=== PATIENT | female | born 1960 | race Caucasian/White ===

== ENCOUNTER → 2018-05-12 13:43 | Outpatient (CLI) | payer MEDICARE, SELFPAY ==
[2018-05-12 14:35] LABS: Add Manual Diff / Slide Review NO; Basophils Percent Auto 0.3 % (0-2); Eosinophils Percent Auto 3.7 % (2-4); Lymphocytes Percent Auto 37.9 % (25-40); Mean Corpuscular HGB Conc 33.4 % (30-36); Mean Corpuscular Hemoglobin 28.5 PG (26-34); Mean Corpuscular Volume 85.4 fL (80-100); Monocytes Percent Auto 5.6 % (3-14); Neutrophils Absolute Auto 6100 /uL (3000-5900); Neutrophils Percent Auto 52.5 % (50-75); Platelet Count 388 X10^3/uL (150-400); Red Blood Cell Count 4.57 X10^6/uL (4.0-5.2); White Blood Cell Count 11.6 X10^3/uL (4.5-11.0)
[2018-05-12 14:56] LABS: Alanine Aminotransferase 77 IU/L (9-52); Albumin Globulin Ratio 0.9 (1.0-2.8); Alkaline Phosphatase 113 U/L (38-126); Aspartate Aminotransferase 68 IU/L (14-36); BUN Creatinine Ratio 24.3 (6-22); Bilirubin Total 0.5 mg/dL (0.2-1.3); Blood Urea Nitrogen 17 mg/dL (7-17); Calcium 9.4 mg/dL (8.4-10.2); Carbon Dioxide 34 mmol/L (22-32); Chloride 101 mmol/L (98-107); Estimated Glomerular Filt Rate > 60.0 mL/min (>60); Globulin 4.7 g/dL (1.7-4.1); Glucose 109 mg/dL (70-100); HEMOLYSIS < 15 (0-50); Potassium 3.9 mmol/L (3.4-5.1); Sodium 141 mmol/L (137-145); Total Protein 8.7 g/dL (6.3-8.2)
[2018-05-12 15:33] LABS: Hepatitis B Surface Antigen NEGATIVE s/c (NEGATIVE)
[2018-05-12 15:56] LABS: Hep C Virus Ab w/Reflex Quant REACTIVE s/c (NEGATIVE)
[2018-05-14 14:06] LABS: Hepatitis A Antibody IgM Nonreactive (Nonreactive); Hepatitis B Core Antibody Nonreactive (Nonreactive)
[2018-05-14 15:47] LABS: Hepatitis B Surf Ab Qualitativ Nonreactive (Nonreactive)
[2018-05-20 08:39] LABS: Rapid Plasma Reagin NON-REACTIVE
== END ==
PROVIDERS: Visit Provider Physician Assistant Medical
DX: Z11.3 Encounter for screening for infections with a predominantly sexual mode of transmission (principal); Z11.51 Encounter for screening for human papillomavirus (HPV); Z13.228 Encounter for screening for other metabolic disorders
CPT/HCPCS: 36415; 80053; 85025; 86592; 86704; 86706; 86709; 86803; 87340; 87522; 87902

== ENCOUNTER 2021-03-09 16:06 | Inpatient (IN) | payer MEDICARE, SELFPAY ==
[2021-03-09] VITALS (15 sets, daily range): BP systolic 90–134; BP diastolic 50–81; PULSE 66–100; RESP 18–24; TEMP 37.3; O2SAT 91–97; BMI 20.9
[2021-03-09 17:07] LABS: Add Manual Diff / Slide Review NO; Basophils Absolute Auto 100 /uL (0-100); Basophils Percent Auto 0.8 % (0-2); Eosinophils Absolute Auto 300 /uL (0-450); Eosinophils Percent Auto 2.8 % (2-4); Hematocrit 34.9 % (36-46); Hemoglobin 11.7 g/dL (12.0-16.0); Lymphocytes Absolute Auto 2800 /uL (1100-4500); Lymphocytes Percent Auto 31.1 % (25-40); Mean Corpuscular HGB Conc 33.4 % (30-36); Mean Corpuscular Hemoglobin 28.7 PG (26-34); Mean Corpuscular Volume 85.8 fL (80-100); Monocytes Absolute Auto 900 /uL (0-900); Monocytes Percent Auto 10.2 % (3-14); Neutrophils Absolute Auto 5000 /uL (1500-7000); Neutrophils Percent Auto 55.1 % (50-75); Platelet Count 669 X10^3/uL (150-400); Red Blood Cell Count 4.07 X10^6/uL (4.0-5.2); Red Cell Distribution Width 14.1 % (11.6-14.8); White Blood Cell Count 9.1 X10^3/uL (4.5-11.0)
[2021-03-09 17:14] LABS: Alanine Aminotransferase 29 IU/L (<35); Albumin 2.8 g/dL (3.5-5.0); Albumin Globulin Ratio 0.6 (1.0-2.8); Alkaline Phosphatase 129 U/L (38-126); Aspartate Aminotransferase 38 IU/L (14-36); BUN Creatinine Ratio 23.9 (6-22); Bilirubin Total 0.2 mg/dL (0.2-1.3); Blood Urea Nitrogen 11 mg/dL (7-17); Calcium 8.7 mg/dL (8.4-10.2); Carbon Dioxide 28 mmol/L (22-32); Chloride 106 mmol/L (98-107); Creatine Kinase < 20 U/L (30-135); Estimated Glomerular Filt Rate > 60.0 mL/min (>60); Globulin 4.7 g/dL (1.7-4.1); Glucose 95 mg/dL (70-100); HEMOLYSIS < 15 (0-50); Potassium 3.9 mmol/L (3.4-5.1); Sodium 136 mmol/L (137-145); Total Protein 7.5 g/dL (6.3-8.2)
[2021-03-09 17:15] LABS: Lactate (Lactic Acid) 0.9 mmol/L (0.7-2.1)
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
[2021-03-09 17:26] LABS: Troponin I < 0.012 ng/mL (0.01-0.034)
--- NOTE | 2021-03-09 17:26 | DI.CT.S_ITS ---
PROCEDURE: CT ABDOMEN PELVIS W CON, 03/09/2021, 17:41 CT LE RT W CON, 03/09/2021, 17:41 INDICATIONS: large hip/thigh abscess ? communication into pelvis, ?osteo TECHNIQUE: After the administration of intravenous contrast, 5 mm thick sections acquired from the diaphragm to the symphysis. 5 mm coronal and sagittal reformats were acquired. For radiation dose reduction, the following was used: automated exposure control, adjustment of mA and/or kV according to patient size. COMPARISON: None. FINDINGS: Image quality: Excellent. ABDOMEN: Lung bases: Lung bases are clear. Heart size is normal. Solid organs: Liver is normal in size and enhancement. Gallbladder is normal. A 2.0 centimeter left adrenal nodule measures 28 Hounsfield units and is therefore indeterminate. Biliary system is non dilated. Pancreas enhances normally. Spleen is normal in size and enhancement. Kidneys demonstrate normal size and enhancement, without hydronephrosis. Peritoneum and bowel: Bowel loops demonstrate normal wall thickness and caliber. No free fluid or air. Nodes and vessels: No retroperitoneal or mesenteric adenopathy by size criteria. Aorta and inferior vena cava are normal in size. Miscellaneous: No ventral hernias. PELVIS: Genitourinary: Bladder wall thickness is normal. Miscellaneous: No inguinal hernias or adenopathy. Bones: No suspicious bony lesions. No vertebral body compression fractures. Degenerative disc disease at L3-4 and L4-5. CT OF THE RIGHT LOWER EXTREMITY: CT of the right lower extremity demonstrates a soft tissue defect of the right lateral hip overlying the greater trochanter and right hemipelvis which external communication through an opening in the skin. There is air in the soft tissues with no fluid collection. There is no evidence of osteomyelitis with no cortical bone the defect or periostitis. The underlying gluteal musculature demonstrates no evidence of deep muscle infection or abscess. IMPRESSION: 1. Superficial wound over the right hip with communication through the skin consistent with a superficial abscess which has spontaneously drained. No involvement of the underlying musculature or bone. 2. 2 centimeter left adrenal nodule is indeterminate. Recommend nonemergent MRI or adrenal protocol CT. Dictated by: Raul Castillo M.D. on 03/09/2021 at 18:23 Approved by: Raul Castillo M.D. on 03/09/2021 at 18:35
[2021-03-09 17:31] LABS: Procalcitonin 0.12 ng/mL (<0.5)
[2021-03-09] MEDS: KETOROLAC 30 MG/ML VIAL 15 MG IV (18:02)
[2021-03-09] MEDS: cefTRIAXone 2,000 MG in SODIUM CHLORIDE 0.9% 100 ML 200 ML IV (18:05)
[2021-03-09] MEDS: SODIUM CHLORIDE 0.9% 1,000 ML 1000 ML IV ×2 (18:07→20:32)
[2021-03-09 18:16] LABS: C-Reactive Protein Quant 5.5 mg/dL (<1.0)
[2021-03-09 18:46] LABS: COVID19 - ADMIT (NP swab/PCR) Negative (Negative)
[2021-03-09] MEDS: VANCOMYCIN 1,500 MG/300 ML PIGGYBACK 200 MG IV (18:52)
--- NOTE | 2021-03-09 21:44 | PC.NURSE ---
received report on pt from [facility]. Resting in bed at this time eyes closed, appears sleeping. remains on cardiac monitoring. Will allow to sleep. call younger in reach. awaiting admission
[2021-03-10] VITALS (13 sets, daily range): BP systolic 111–133; BP diastolic 58–78; PULSE 51–85; RESP 16–24; TEMP 36.3–37.2; O2SAT 94–100; BMI 23.1
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
[2021-03-10 00:28] LABS: Appearance Urine UA CLEAR; Bilirubin Urine UA NEGATIVE (NEGATIVE); Color Urine UA YELLOW; Glucose Urine UA NEGATIVE (Negative); Ketones Urine UA NEGATIVE (NEGATIVE); Leukocyte Esterase Urine UA NEGATIVE (NEGATIVE); Nitrite Urine UA NEGATIVE (Negative); Occult Blood Urine UA NEGATIVE (Negative); Protein Urine UA TRACE (Negative); Specific Gravity Urine UA 1.015 (1.000-1.035); Urobilinogen Urine UA 0.2 E.U./dL (0.2)
--- NOTE | 2021-03-10 00:30 | PC.ADMIT ---
Addendum entered by Esme Segovia R.N. 03/10/21 02:55: Patient was not able to recall emergency contacts phone number and requested to list her one visitors information later as she just wanted to sleep and couldn't think of who she wanted to list at this time. Addendum entered by Esme Segovia R.N. 03/10/21 02:41: Patient arrived on unit at 0030 via bed from the ED. Patient is A&O but is unsure on the year and day. Patient denies pain unless we are touching her wound on her right hip/leg. Patient was oriented to room and call light is within reach. Patient has clothing at bedside and the pocket knife was sent to the safe/coordinator. Patient denies taking any home medications and admits to heroin and tobacco use. Patient states that her last use of heroin was the morning of 03/09/2021. Patient is resting in bed and requesting to sleep. Original Note: 1015 Admission Note: The patient,Liana Márquez,60 y/o, was given written information regarding hospital policies, unit procedures and contact persons. Patient's smoking status: Current every day smoker. Vital Signs - 8 hr 03/09/21 19:00 03/09/21 19:30 03/09/21 19:47 Temperature Pulse Rate 87 82 81 Respiratory Rate 20 Blood Pressure 110/62 Pulse Oximetry 94 95 97 03/09/21 20:00 03/09/21 20:30 03/09/21 21:00 Temperature Pulse Rate 79 79 66 Respiratory Rate Blood Pressure 97/55 L 100/56 L Pulse Oximetry 96 96 96 03/09/21 21:30 03/09/21 22:00 03/09/21 22:30 Temperature Pulse Rate 74 79 78 Respiratory Rate Blood Pressure 114/62 90/55 L 91/50 L Pulse Oximetry 96 94 94 03/09/21 23:00 03/10/21 00:30 03/10/21 00:48 Temperature 99.0 F 99.0 F Pulse Rate 68 71 71 Respiratory Rate 23 18 18 Blood Pressure 108/58 L 116/71 116/71 Pulse Oximetry 93 96 96 03/10/21 02:38 Temperature Pulse Rate Respiratory Rate Blood Pressure Pulse Oximetry 94
[2021-03-10 00:40] LABS: Magnesium 2.1 mg/dL (1.6-2.3)
[2021-03-10 01:01] LABS: Bacteria Urine Occasional (0-1); Culture Indicated Urine Cult Not Indicated; Mucus Urine 1+ (Negative); RBC Urine 0-1/HPF (0-5/HPF); Squamous Epithelial Cell Urine 1-5 /HPF (0-5/HPF); WBC Urine 1-5/HPF (0-5/HPF)
[2021-03-10] MEDS: SODIUM CHLORIDE 0.9% 1,000 ML 100 ML IV ×2 (01:33→23:36)
[2021-03-10] MEDS: ACETAMINOPHEN 325 MG TABLET 650 MG PO (01:38)
[2021-03-10] MEDS: PIPERACILLIN/TAZO 4.5 GM in SODIUM CHLORIDE 0.9% 100 ML 25 ML IV (02:34)
[2021-03-10 05:30] LABS: Add Manual Diff / Slide Review NO; Basophils Absolute Auto 100 /uL (0-100); Basophils Percent Auto 0.7 % (0-2); Eosinophils Absolute Auto 100 /uL (0-450); Eosinophils Percent Auto 1.1 % (2-4); Hematocrit 34.7 % (36-46); Hemoglobin 11.5 g/dL (12.0-16.0); Lymphocytes Absolute Auto 2400 /uL (1100-4500); Mean Corpuscular HGB Conc 33.2 % (30-36); Mean Corpuscular Hemoglobin 28.4 PG (26-34); Mean Corpuscular Volume 85.5 fL (80-100); Monocytes Absolute Auto 800 /uL (0-900); Monocytes Percent Auto 7.2 % (3-14); Neutrophils Absolute Auto 8400 /uL (1500-7000); Platelet Count 572 X10^3/uL (150-400); Red Blood Cell Count 4.05 X10^6/uL (4.0-5.2); Red Cell Distribution Width 14.1 % (11.6-14.8); White Blood Cell Count 11.8 X10^3/uL (4.5-11.0)
[2021-03-10 05:38] LABS: BUN Creatinine Ratio 16.7 (6-22); Blood Urea Nitrogen 9 mg/dL (7-17); Calcium 8.1 mg/dL (8.4-10.2); Carbon Dioxide 25 mmol/L (22-32); Chloride 111 mmol/L (98-107); Estimated Glomerular Filt Rate > 60.0 mL/min (>60); Glucose 86 mg/dL (70-100); HEMOLYSIS < 15 (0-50); Potassium 4.2 mmol/L (3.4-5.1); Sodium 139 mmol/L (137-145)
[2021-03-10 05:47] LABS: Erythrocyte Sedimentation Rate 30 MM/HR (0-20)
[2021-03-10 05:49] LABS: INR 1.3 (0.9-1.3); Prothrombin Time 14.2 SECONDS (10.1-12.7)
[2021-03-10 05:53] LABS: D Dimer 508 ng/mL (<230)
[2021-03-10] MEDS: PANTOPRAZOLE DR 20 MG TABLET PO (05:56)
--- NOTE | 2021-03-10 06:08 | PC.NURSE ---
Addendum entered by Esme Segovia R.N. 03/10/21 06:53: Patient check was done and patient was tossing in bed asking for medication because she doesn't feel well. RENÉE Julio César was notified and a verbal order to administer the Suboxone now was given. Original Note: Patient is diaphoretic and wakes when spoken too, however she likes to keep her eyes closed or covered. Patient states her stomach hurts but when asked to describe it she just states it hurts. Patient was asked if she was hungry or if the pain was sharp, dull, or aching, and patient just moaned. When asked if she needed anything she replied no. Call light is within reach and bed is in lowest position.
[2021-03-10 06:20] LABS: Gamma Glutamyl Transpeptidase 32 U/L (12-43)
[2021-03-10] MEDS: BUPRENORPHINE/NALOXONE 8MG/2MG 1 TAB SL (08:09)
[2021-03-10] MEDS: VANCOMYCIN 1,000 MG/200 ML PIGGYBACK 200 MG IV ×3 (08:44→23:36)
[2021-03-10] MEDS: METHADONE 10 MG TABLET PO (09:49)
[2021-03-10] MEDS: PIPERACILLIN/TAZO 3.375 GM in SODIUM CHLORIDE 0.9% 100 ML 25 ML IV ×2 (10:55→18:29)
--- NOTE | 2021-03-10 14:41 | CM.DANOTE ---
Patient is a 60 year old female who was admitted on 03/09/21 for Hole in Leg. Pt has MCR and her PCP is not listed. EMR was reviewed. Per MD, pt with long hx of heroin use and occasional methamphetamine with recent relapse after 2 years sobriety and admitted for large abscess/cellulitis. Surgeon Consult and pt scheduled for I&D tomorrow morning 03/11/21 and currently on IV Vanco and will be NPO after midnight in anticipation of surgical intervention. Pt has hx of Suboxone tx and states she plans to continue but started on Methadone today due to upcoming surgery tomorrow and interactions. Pt has had withdrawal symptoms today and somewhat agitated and some confusion or difficulty for staff to get clear historical situation or living situation. Pt last admitted in 2013 with similar and was considered somewhat homeless at that time and was able to d/c with outpt [facility] and outpt follow up with [facility] and [facility]. SW met bedside with pt and explained role and she was able to confirm that she is aware of Wash[facility] tomorrow with Surgeon and states that she still has her Sig Iris Barlow ([phone]?) and that [facility] the max limit of 21 days and then pt will stay in her car outside her mother's home in [place] and then couch surf or go to other locations. Pt confirms that she has been attempting to get back on Suboxone tx in [facility], says [facility] but unclear if through [facility] or [facility] and declines SW assist in getting this set up for eventual d/c. Pt states she drove herself to the hospital and therefore her vehicle is in the parking lot and she could potentially transport herself home at d/c. SW discussed the need to likely wait for I&D and culture results to determine how long IV-Abx needed and if can be switched to orals. Pt concerned that she does not have her cell phone and helped pt to place call to Sig Iris Cain and pt updated him that she was admitted to the hospital. Plan: SW to follow closely after I&D tomorrow towards determining d/c planning needs and medications for d/c and any wound care needs. Pt's active drug abuse can be a barrier to d/c planning. BONNY Keita Discharge Planning/Care Management CM Discharge Assessment Start: 03/10/21 14:36 Freq: Status: Active Protocol: Document 03/10/21 14:36 BF (Rec: 03/10/21 14:41 BF [id number]) Discharge Planning Assessment Assigned Coating Technician BONNY Boone DPOA/Assigned Designee Name none, informally mother Advance Directives? No Advance Directives on File No History Provided By Patient,Medical Record Has Patient been admitted in last 30 No days? Prior Living Arrangements RV Comment Pt somewhat homeless but tends to stay in RV at [place] with sig other and then spends time staying in her car outside her mom's house in [place] and couch surfing Household Members significant other Type of transporation used prior to Drives own vehicle admit Comment Has own vehicle that she drove herself to hospital in Independent with ADL's Yes Is patient alert and oriented? Yes Caregiver for Another No Comment Off an on treatment with Suboxone in [facility] and relapse on heroin and meth Barriers to Discharge Yes Comment Possible need for exterminator helper termite IV -Abx Discharge Plan Home Transportation Arrangement Pt's car is in the parking lot and pt also has possible transport options with friend/ sig other if needed Additional Comment Pending I&D tomorrow with Surgeon Review Status In Process Please Provide Date Initial DC 03/10/21 Assessment Was Performed Next Review Type Continued Stay Review
--- NOTE | 2021-03-10 15:10 | PC.NURSE ---
This morning dressing to right hip wound had copious drainage from ABD pads when patient got up to BSC. Dressing changed and now covered with ABD pads and paper tape, currently CDI. Voiding without difficulty, had large bowel movement. Up to BSC with 1 assist. Drank Julius drink served with lunch. Plan for NPO after midnight for debridement tomorrow with surgery. Currently sleeping in bed, call light withi nreach, bed alarm on for safety. IV fluids and antibiotics as ordered.
--- NOTE | 2021-03-10 15:57 | DIET.PN ---
Dietary Progress Note Pt feeling discomfort secondary to withdrawls when visit attempted. Sending up Julius bid to support wound healing and will reattempt consult on am.
[2021-03-10] MEDS: KETOROLAC 30 MG/ML VIAL IV (16:05)
--- NOTE | 2021-03-10 16:37 | PM.CN ---
History of Present Illness Consult details Date Patient Seen: 03/10/21 Time Patient Seen: 16:37 Chief complaint: HOLE ON RIGHT SIDE OF LEG Narrative: 60-year-old woman history of methamphetamine heroin and alcohol use who presents to the hospital with a right outer thigh wound. She has a challenging historian and she is actively withdrawing from methamphetamine. She thinks that the wound may have occurred as result of pressure injury. No history of prior similar injury. He had 3 of the extremity demonstrates a superficial wound without involvement of the muscle or bone. She is afebrile hemodynamically stable. WBC 12. She has been receiving Zosyn and vancomycin. Meds Home Medications and Allergies Home Medications Medication Instructions Recorded Confirmed Type No Known Home Medications 03/10/21 03/10/21 History Allergies Allergy/AdvReac Type Severity Reaction Status Date / Time codeine Allergy Mild ITCHING Verified 03/10/21 08:00 Review of Systems Review of Systems ROS: Yes unobtainable due to mental status Exam Vital Signs (past 8 hours): - 03/10/21 12:00 03/10/21 15:37 Temperature 97.9 F 97.4 F L Pulse Rate 72 65 Respiratory Rate 18 18 Blood Pressure 126/74 114/69 Pulse Oximetry 99 94 Oxygen Delivery Method Room Air Oxygen Flow Rate 0 Narrative Exam Narrative: GENERAL-disheveled woman appears older than age, no acute distress HEENT-no scleral icterus, hearing intact NECK-no JVD, trachea midline CVS- regular rate, no peripheral edema RESP-unlabored respiratory effort, no audible wheezing GI-soft, nontender nondistended MSK-no cyanosis or clubbing, extremities without deformity SKIN-15 x 10 cm wound over the right lateral hip. Unable to stage depth Objective Labs Result Diagrams: 03/10/21 05:15 03/10/21 05:15 Labs: Laboratory Results - last 24 hr 03/09/21 03/09/21 03/09/21 16:50 16:50 16:50 WBC 9.1 RBC 4.07 Hgb 11.7 L Hct 34.9 L MCV 85.8 MCH 28.7 MCHC 33.4 RDW 14.1 Plt Count 669 H Neut % (Auto) 55.1 Lymph % (Auto) 31.1 [place] % (Auto) 10.2 Eos % (Auto) 2.8 Baso % (Auto) 0.8 Neut # (Auto) 5000 Lymph # (Auto) 2800 [place] # (Auto) 900 Eos # (Auto) 300 Baso # (Auto) 100 ESR PT INR D-Dimer Sodium 136 L Potassium 3.9 Chloride 106 Carbon Dioxide 28 BUN 11 Creatinine 0.46 L Estimated GFR > 60.0 BUN/Creatinine Ratio 23.9 H Glucose 95 Lactate 0.9 Calcium 8.7 Magnesium Total Bilirubin 0.2 GGT AST 38 H ALT 29 Alkaline Phosphatase 129 H Total Creatine Kinase < 20 L CK-MB (CK-2) TNP CK-MB (CK-2) Rel Index TNP Troponin I < 0.012 C-Reactive Protein Total Protein 7.5 Albumin 2.8 L Globulin 4.7 H Albumin/Globulin Ratio 0.6 L Procalcitonin 0.12 Urine Color Urine Appearance Urine pH Ur Specific [place] Urine Protein Urine Glucose (UA) Urine Ketones Urine Occult Blood Urine Nitrate Urine Bilirubin Urine Urobilinogen Ur Leukocyte Esterase Urine RBC Urine WBC Ur Squamous Epith Cells Urine Bacteria Urine Mucus Ur Culture Indicated? SARS-CoV-2 (PCR) 03/09/21 03/09/21 03/09/21 16:50 16:50 17:32 WBC RBC Hgb Hct MCV MCH MCHC RDW Plt Count Neut % (Auto) Lymph % (Auto) [place] % (Auto) Eos % (Auto) Baso % (Auto) Neut # (Auto) Lymph # (Auto) [place] # (Auto) Eos # (Auto) Baso # (Auto) ESR PT INR D-Dimer Sodium Potassium Chloride Carbon Dioxide BUN Creatinine Estimated GFR BUN/Creatinine Ratio Glucose Lactate Calcium Magnesium 2.1 Total Bilirubin GGT AST ALT Alkaline Phosphatase Total Creatine Kinase CK-MB (CK-2) CK-MB (CK-2) Rel Index Troponin I C-Reactive Protein 5.5 H Total Protein Albumin Globulin Albumin/Globulin Ratio Procalcitonin Urine Color Urine Appearance Urine pH Ur Specific [place] Urine Protein Urine Glucose (UA) Urine Ketones Urine Occult Blood Urine Nitrate Urine Bilirubin Urine Urobilinogen Ur Leukocyte Esterase Urine RBC Urine WBC Ur Squamous Epith Cells Urine Bacteria Urine Mucus Ur Culture Indicated? SARS-CoV-2 (PCR) Negative 03/10/21 03/10/21 03/10/21 00:15 05:15 05:15 WBC 11.8 H RBC 4.05 Hgb 11.5 L Hct 34.7 L MCV 85.5 MCH 28.4 MCHC 33.2 RDW 14.1 Plt Count 572 H Neut % (Auto) 71.0 Lymph % (Auto) 20.0 L [place] % (Auto) 7.2 Eos % (Auto) 1.1 L Baso % (Auto) 0.7 Neut # (Auto) 8400 H Lymph # (Auto) 2400 [place] # (Auto) 800 Eos # (Auto) 100 Baso # (Auto) 100 ESR PT 14.2 H INR 1.3 D-Dimer Sodium Potassium Chloride Carbon Dioxide BUN Creatinine Estimated GFR BUN/Creatinine Ratio Glucose Lactate Calcium Magnesium Total Bilirubin GGT AST ALT Alkaline Phosphatase Total Creatine Kinase CK-MB (CK-2) CK-MB (CK-2) Rel Index Troponin I C-Reactive Protein Total Protein Albumin Globulin Albumin/Globulin Ratio Procalcitonin Urine Color Yellow Urine Appearance Clear Urine pH 6.0 Ur Specific [place] 1.015 Urine Protein Trace H Urine Glucose (UA) Negative Urine Ketones Negative Urine Occult Blood Negative Urine Nitrate Negative Urine Bilirubin Negative Urine Urobilinogen 0.2 Ur Leukocyte Esterase Negative Urine RBC 0-1/hpf Urine WBC 1-5/hpf Ur Squamous Epith Cells 1-5 /hpf Urine Bacteria Occasional (0-1) Urine Mucus 1+ H Ur Culture Indicated? Cult not indicated SARS-CoV-2 (PCR) 03/10/21 03/10/21 03/10/21 05:15 05:15 05:15 WBC RBC Hgb Hct MCV MCH MCHC RDW Plt Count Neut % (Auto) Lymph % (Auto) [place] % (Auto) Eos % (Auto) Baso % (Auto) Neut # (Auto) Lymph # (Auto) [place] # (Auto) Eos # (Auto) Baso # (Auto) ESR 30 H PT INR D-Dimer 508 H Sodium 139 Potassium 4.2 Chloride 111 H Carbon Dioxide 25 BUN 9 Creatinine 0.54 Estimated GFR > 60.0 BUN/Creatinine Ratio 16.7 Glucose 86 Lactate Calcium 8.1 L Magnesium Total Bilirubin GGT AST ALT Alkaline Phosphatase Total Creatine Kinase CK-MB (CK-2) CK-MB (CK-2) Rel Index Troponin I C-Reactive Protein Total Protein Albumin Globulin Albumin/Globulin Ratio Procalcitonin Urine Color Urine Appearance Urine pH Ur Specific [place] Urine Protein Urine Glucose (UA) Urine Ketones Urine Occult Blood Urine Nitrate Urine Bilirubin Urine Urobilinogen Ur Leukocyte Esterase Urine RBC Urine WBC Ur Squamous Epith Cells Urine Bacteria Urine Mucus Ur Culture Indicated? SARS-CoV-2 (PCR) 03/10/21 05:15 WBC RBC Hgb Hct MCV MCH MCHC RDW Plt Count Neut % (Auto) Lymph % (Auto) [place] % (Auto) Eos % (Auto) Baso % (Auto) Neut # (Auto) Lymph # (Auto) [place] # (Auto) Eos # (Auto) Baso # (Auto) ESR PT INR D-Dimer Sodium Potassium Chloride Carbon Dioxide BUN Creatinine Estimated GFR BUN/Creatinine Ratio Glucose Lactate Calcium Magnesium Total Bilirubin GGT 32 AST ALT Alkaline Phosphatase Total Creatine Kinase CK-MB (CK-2) CK-MB (CK-2) Rel Index Troponin I C-Reactive Protein Total Protein Albumin Globulin Albumin/Globulin Ratio Procalcitonin Urine Color Urine Appearance Urine pH Ur Specific [place] Urine Protein Urine Glucose (UA) Urine Ketones Urine Occult Blood Urine Nitrate Urine Bilirubin Urine Urobilinogen Ur Leukocyte Esterase Urine RBC Urine WBC Ur Squamous Epith Cells Urine Bacteria Urine Mucus Ur Culture Indicated? SARS-CoV-2 (PCR) Assessment & Plan Assessment & Plan narrative: 60-year-old woman with methamphetamine opiate and alcohol use here with a large wound of her right lateral thigh. Wound grossly infected incision and drainage with debridement is indicated. Technical details of the procedure were discussed with the patient. Operative risks including bleeding, infection incomplete wound healing, need for further procedure, damage to surrounding structures. Her questions have been answered and she is in agreement with this plan.. Postoperative care with wet-to-dry daily dressing. -OR 03/11 for incision and drainage of right thigh wound
[2021-03-10] MEDS: METHADONE 5 MG TABLET PO (19:39)
[2021-03-11] VITALS (19 sets, daily range): BP systolic 101–127; BP diastolic 57–76; PULSE 49–75; RESP 14–20; TEMP 36.1–37.2; O2SAT 94–100; BMI 22.6
[2021-03-11] MEDS: KETOROLAC 30 MG/ML VIAL IV ×2 (00:20→11:19)
[2021-03-11] MEDS: PIPERACILLIN/TAZO 3.375 GM in SODIUM CHLORIDE 0.9% 100 ML 25 ML IV ×3 (02:39→19:07)
[2021-03-11] MEDS: PANTOPRAZOLE DR 20 MG TABLET PO (05:20)
[2021-03-11] MEDS: METHADONE 5 MG TABLET PO ×2 (05:20→19:08)
[2021-03-11 05:59] LABS: Hematocrit 35.8 % (36-46); Hemoglobin 11.9 g/dL (12.0-16.0); Mean Corpuscular HGB Conc 33.2 % (30-36); Mean Corpuscular Hemoglobin 28.7 PG (26-34); Mean Corpuscular Volume 86.5 fL (80-100); Platelet Count 533 X10^3/uL (150-400); Red Blood Cell Count 4.14 X10^6/uL (4.0-5.2); Red Cell Distribution Width 14.3 % (11.6-14.8); White Blood Cell Count 9.3 X10^3/uL (4.5-11.0)
[2021-03-11 06:16] LABS: BUN Creatinine Ratio 39.1 (6-22); Blood Urea Nitrogen 18 mg/dL (7-17); Calcium 8.4 mg/dL (8.4-10.2); Carbon Dioxide 23 mmol/L (22-32); Chloride 112 mmol/L (98-107); Estimated Glomerular Filt Rate > 60.0 mL/min (>60); Glucose 87 mg/dL (70-100); HEMOLYSIS < 15 (0-50); Sodium 138 mmol/L (137-145)
[2021-03-11 09:06] LABS: INR 1.2 (0.9-1.3); Prothrombin Time 13.8 SECONDS (10.1-12.7)
[2021-03-11 09:18] LABS: Vancomycin Trough 13.7 ug/mL (10-20)
[2021-03-11] MEDS: METHADONE 10 MG TABLET 15 MG PO (09:50)
[2021-03-11] MEDS: VANCOMYCIN 1,000 MG/200 ML PIGGYBACK 200 MG IV (09:50)
[2021-03-11] MEDS: VANCOMYCIN TROUGH 1 REQUEST MISC (09:51)
--- NOTE | 2021-03-11 10:50 | CM.DPNOTE ---
Addendum entered by Iris Chun 03/11/21 11:32: Faxed nursing notes to Celine at [facility] per Anitra, fax: [phone]. Her direct phone number: [phone], ext. [phone]. Fax confirmation received. Iris Chun CM Asst. Addendum entered by Iris Chun 03/11/21 11:31: Cassie from Care Mgmt at [facility] returned my call and said they do not have any availability for swing beds at this time and to call back later next week. Her direct phone number is [phone]. Original Note: Call for swing beds: [facility] [phone] and spoke with Jaime on unit. He is not the contact manager, but took my info and will give it to appropriate person to call me back. [facility]: I called and spoke with Celine Gaspar and she said there is one bed available, and to send over clinicals and she will review them. I did that per Anitra on 03/11/21 to Celine's attention. I included CM notes. Received fax confirmation. Iris Chun CM Asst.
--- NOTE | 2021-03-11 12:33 | CM.DPC ---
DCP: continued: case received and discussed in Team Rounds. BONNY Boone is here today but not assigned to this case. She and Html Developer Susan noted the complexity of pt's social issues as well as current plan for pt to go later today to OR with [facility] Dr. Nicole for I&D. Dr. Gonzales, on today as hospitalist, said that pt may need a snf setting at d/c for wound healing and ? IV antibiotics. Both Mely and Susan noted that her active heroin and meth use plus unstable housing status would likely make a snf acceptance difficult. They recommended hospital swing bed setting. POPPY Iris did some research/see her note and have spoken now with Celine/[facility] Management team: [phone]. She received the clinical records which included the DCP assessment notes from BONNY Boone as well as nursing notes and says that her hospitalist is reviewing these. At this time Celine says they do not have enough information re why pt would need a swing bed setting and why oral, not IV antibiotics might be needed. She also needs more clarity re use of methadone or suboxone treatment and where pt would get these medications. Wound care needs are yet to be defined. Would recommend a hospitalist to hospitalist discussion as more is known. Celine says not yet appropriate for this until POC is clearer. They are open to consideration of acceptance of pt when she is stable for same but Celine says the documentation is not compelling yet as to need. Celine requests more notes be sent tomorrow/ her partner Elizabeth will be on at same number. .
--- NOTE | 2021-03-11 14:32 | PC.NURSE ---
VSS other than bradycardia on tele. Pain 7-10. Given PRN Ketorolac with some relief. Dressing soaked with purulent drainage, chnaged abd pad dressing. Call light within reach, bed low, bed alarm on. Calls appropriately. 1 person SBA to bedside commode.
[2021-03-11] MEDS: LACTATED RINGERS 1,000 ML 42 ML IV (16:01)
--- NOTE | 2021-03-11 16:34 | P.PN_ITS ---
Subjective Subjective Date Patient Seen: 03/11/21 Time Patient Seen: 08:34 Interval history: Patient in significant pain. Overnight had more withdrawal symptom and pain and given additional dose of methadone. Today she denies fever or chills, but is clearly uncomfortable. Exam Vital Signs (past 8 hours): - 03/11/21 09:04 03/11/21 12:40 03/11/21 12:56 Temperature 97.0 F L Pulse Rate 59 L 59 L 49 L Respiratory Rate 18 16 16 Blood Pressure 121/69 Pulse Oximetry 97 97 97 03/11/21 15:50 03/11/21 16:20 Temperature 97.4 F L Pulse Rate 75 Respiratory Rate 14 Blood Pressure 106/60 Pulse Oximetry 97 94 Oxygen Delivery Method Room Air Oxygen Flow Rate 0 Narrative Exam Narrative: GENERAL-disheveled woman appears older than age, writhing in bed in discomfort HEENT-no scleral icterus, PERRL, moist mucous membranes NECK-no JVD, trachea midline CVS- regular rate and rhythm with no murmurs RESP-clear bilaterally with no wheezes, rhonchi, rales GI-soft, nontender nondistended, normal bowel sounds, no organomegaly EXT-warm and well perfused, no edema SKIN-unstageable pressure injury to right hip/thigh with full thickness skin and tissue loss, obscured by slough and eschar, foul smelling, skin surrounding is erythematous and tender Objective Labs Result Diagrams: 03/11/21 05:25 03/11/21 05:25 Labs: Laboratory Results - last 24 hr 03/11/21 03/11/21 03/11/21 05:25 05:25 08:10 WBC 9.3 RBC 4.14 Hgb 11.9 L Hct 35.8 L MCV 86.5 MCH 28.7 MCHC 33.2 RDW 14.3 Plt Count 533 H PT INR Sodium 138 Potassium 4.0 Chloride 112 H Carbon Dioxide 23 BUN 18 H Creatinine 0.46 L Estimated GFR > 60.0 BUN/Creatinine Ratio 39.1 H Glucose 87 Calcium 8.4 Vancomycin Trough 13.7 03/11/21 08:10 WBC RBC Hgb Hct MCV MCH MCHC RDW Plt Count PT 13.8 H INR 1.2 Sodium Potassium Chloride Carbon Dioxide BUN Creatinine Estimated GFR BUN/Creatinine Ratio Glucose Calcium Vancomycin Trough [facility] Medical History Heroin use Methamphetamine use Tobacco abuse Surgical History History of appendectomy Family History Father Heart attack Cancer Mother No known health problems Social History household members: significant other Smoking Status: Current every day smoker alcohol intake: former Assessment & Plan Assessment & Plan narrative: Ms. Márquez is a 60W with PMH of acute heroin and meth use who presents with large infected pressure ulcer 1. Infected pressure ulcer with cellulitis and abscess -ulcer is very large, purulent, severe -imaging shows no evidence of osteomyelitis -patient not septic -initially WBC of 11, improving on broad spectrum antibiotics -alpha hemolytic strep growing in wound -initially on vancomycin and zosyn, will add clindamycin first day of 03/11 -plan for OR for debridement on 03/11 -follow up OR and blood cultures, wound culture -given severity of infection will likely need 2 weeks of IV antibiotics, and possibly longer depending on depth of infection found during surgery 2. Heroin and methamphetamine use, acute on chronic, present on admission -monitor patient and treat withdrawal symptoms -initial plan was for suboxone, however patient still withdrawing and in pain so switched to methadone -started at methadone 10mg daily, however pain remained so increased to 15mg daily, and may need further increase 3. Tobacco abuse, acute on chronic, present on admission -offer patient nicotine patch -education provided on smoking cessation 4. Under weight/malnourished as evidence by a BMI of 23.1, likely secondary to substance abuse, acute on chronic, present on admission -nutritional consult ordered 5. Adrenal nodule, left -incidentally noted, 2cm, recommend outpatient MRI for further eval Code status:Full Surrogate decision maker: Mother Parul Dwyer COVID PCR: Negative DVT/VTE prophylaxis: Lovenox 40U sc after surgery
--- NOTE | 2021-03-11 16:35 | PM.PREOP ---
Pre-operative Note Interval Note History & Physical reviewed/Exam performed by Physician: Yes Changes to H&P: No
--- NOTE | 2021-03-11 17:02 | SUR.OPER ---
Lateral on padded OR bed, head on pillow, gel axillary roll in place, bottom leg bent with gel pad under knee to foot, upper leg straight and supported with pillows. Upper arm supported by pillows and secured over bottom arm to padded arm board. Safety belt at hip, tape over blanket lower legs.
--- NOTE | 2021-03-11 17:35 | P.OP_ITS ---
Operative Date/Time/Diagnoses Date of procedure: 03/11/21 Time of procedure: 17:36 Pre-op diagnosis: right hip wound Post-op diagnosis: same Procedure & Clinicians Procedure: sharp excisional debridement of right hip wound Same procedure as scheduled: Yes Indications: necrotic wound of right hip soft tissue Surgeon: Vel Nicole Anesthesia Type: General Operative Notes Findings: necrotic soft tissue extensive tunneling. Wound measures 20 x 14 cm 3 cm depth down to the fascia, muscle viable Specimen(s): other (right thigh wound) Estimated Blood Loss (mL): 50 Procedure in detail: Patient was brought to the operating room. Bilateral lower extremity compression devices were applied. She had previously received IV ant ibiotics on the floor within 60 minutes prior to skin incision. General anesthesia was induced she was intubated with an endotracheal tube. She was then transferred into the left lateral decubitus position on the beanbag an axillary roll was placed and she was appropriately padded. Time-out was performed. She was then prepped and draped in sterile fashion. An elliptical incision was made to encompass the wounds on the right hip. The subcutaneous tissue was divided. There was extensive liquefactive necrosis within the wound and tunneling. The necrotic soft tissue was then sharply excised down to the the level of the fascia. The muscle was viable. 3 L of sterile saline was used to pulse lavage the wound. Hemostasis was then achieved. The wound was then packed with moist Kerlix followed by ABD and Medipore tape. Patient tolerated the procedure well was transferred to the recovery room stable condition. Complications: none Post-operative Disposition: Acute Care
[2021-03-11] MEDS: fentaNYL 100 MCG/2 ML INJ IV (17:45)
[2021-03-11] MEDS: CLINDAMYCIN 900 MG/50 ML PIGGYBACK 50 MG IV (19:05)
[2021-03-11] MEDS: VANCOMYCIN 750 MG/150 ML PIGGYBACK 150 MG IV (19:07)
--- NOTE | 2021-03-11 21:47 | PC.NURSE ---
Patient did not come back up from surgery until after 1800. Patient was overdue for clindamycin, vancomycin, and zosyn. Discussed with Viet in Pharmacy and he stated to run zosyn and clindamycin concurrently. Confirmed compatible. Vancomycin started using alternate IV site as a piggyback with NS.
[2021-03-12] VITALS (8 sets, daily range): BP systolic 99–112; BP diastolic 59–68; PULSE 62–71; RESP 14–18; TEMP 36.5–37.1; O2SAT 94–100
[2021-03-12] MEDS: CLINDAMYCIN 900 MG/50 ML PIGGYBACK 50 MG IV ×3 (00:49→16:56)
[2021-03-12] MEDS: VANCOMYCIN 750 MG/150 ML PIGGYBACK 150 MG IV ×3 (02:12→18:27)
[2021-03-12] MEDS: PIPERACILLIN/TAZO 3.375 GM in SODIUM CHLORIDE 0.9% 100 ML 25 ML IV ×3 (03:35→19:37)
[2021-03-12] MEDS: PANTOPRAZOLE DR 20 MG TABLET PO (05:27)
[2021-03-12] MEDS: SODIUM CHLORIDE 0.9% 1,000 ML 100 ML IV ×2 (05:28→15:58)
[2021-03-12 05:38] LABS: BUN Creatinine Ratio 39.5 (6-22); Blood Urea Nitrogen 17 mg/dL (7-17); Calcium 7.7 mg/dL (8.4-10.2); Carbon Dioxide 20 mmol/L (22-32); Chloride 112 mmol/L (98-107); Estimated Glomerular Filt Rate > 60.0 mL/min (>60); Glucose 114 mg/dL (70-100); HEMOLYSIS < 15 (0-50); Potassium 4.2 mmol/L (3.4-5.1); Sodium 136 mmol/L (137-145)
[2021-03-12 08:21] LABS: Hematocrit 30.6 % (36-46); Hemoglobin 10.1 g/dL (12.0-16.0); Mean Corpuscular Hemoglobin 28.3 PG (26-34); Mean Corpuscular Volume 85.5 fL (80-100); Platelet Count 662 X10^3/uL (150-400); Red Blood Cell Count 3.58 X10^6/uL (4.0-5.2); Red Cell Distribution Width 14.2 % (11.6-14.8); White Blood Cell Count 11.5 X10^3/uL (4.5-11.0)
[2021-03-12] MEDS: METHADONE 10 MG TABLET 15 MG PO (09:05)
[2021-03-12] MEDS: ENOXAPARIN 40 MG/0.4 ML SYRINGE SUBCUT (09:06)
[2021-03-12] MEDS: SODIUM CHLORIDE 0.9% FLUSH 10 ML IV ×3 (09:06→20:18)
--- NOTE | 2021-03-12 10:51 | PM.PN.1 ---
Subjective Subjective Date Patient Seen: 03/12/21 Time Patient Seen: 07:51 Interval history: Today she feels her wound is much improved. Her pain is controlled. She is not feeling withdrawal currently. Exam Vital Signs (past 8 hours): - 03/12/21 05:00 03/12/21 07:56 Temperature 98.7 F 98.5 F Pulse Rate 62 63 Respiratory Rate 16 16 Blood Pressure 112/68 102/64 Pulse Oximetry 94 95 Oxygen Delivery Method Room Air Oxygen Flow Rate 0 Narrative Exam Narrative: GENERAL-disheveled woman appears older than age, writhing in bed in discomfort HEENT-no scleral icterus, PERRL, moist mucous membranes NECK-no JVD, trachea midline CVS- regular rate and rhythm with no murmurs RESP-clear bilaterally with no wheezes, rhonchi, rales GI-soft, nontender nondistended, normal bowel sounds, no organomegaly EXT-warm and well perfused, no edema SKIN-unstageable pressure injury to right hip/thigh with full thickness skin and tissue loss, now clean after surgical debridement, surrounding erythema of skin around wound is improving Objective Labs Result Diagrams: 03/12/21 08:04 03/12/21 05:10 Labs: Laboratory Results - last 24 hr 03/12/21 03/12/21 05:10 08:04 WBC 11.5 H RBC 3.58 L Hgb 10.1 L Hct 30.6 L MCV 85.5 MCH 28.3 MCHC 33.0 RDW 14.2 Plt Count 662 H Sodium 136 L Potassium 4.2 Chloride 112 H Carbon Dioxide 20 L BUN 17 Creatinine 0.43 L Estimated GFR > 60.0 BUN/Creatinine Ratio 39.5 H Glucose 114 H Calcium 7.7 L PFSH Medical History Heroin use Methamphetamine use Tobacco abuse Surgical History History of appendectomy Family History Father Heart attack Cancer Mother No known health problems Social History household members: significant other Smoking Status: Current every day smoker alcohol intake: former Assessment & Plan Assessment & Plan narrative: Ms. Márquez is a 60W with PMH of acute heroin and meth use who presents with large infected pressure ulcer 1. Infected pressure ulcer with cellulitis and abscess -ulcer was very large, purulent, severe -went to OR for debridement on 03/11, per Bonnie, after surgical debridement wound was left clean with no further grossly infected tissue -imaging shows no evidence of osteomyelitis -patient not septic -initially WBC of 11, improving on broad spectrum antibiotics -alpha hemolytic strep growing in wound swab -initially on vancomycin and zosyn, will add clindamycin first day of 03/11 -follow up wound cultures from 03/11 -plan to continue clindamycin likely through 03/14 if patient continues to progressively improve -antibiotic course to be determined by final cultures, would recommend IV penicillin for group a strep for a course of at least one week, possibly two weeks given residual cellulitis, but this could change pending final culture results and if patient does not continue to improve 2. Heroin and methamphetamine use, acute on chronic, present on admission -monitor patient and treat withdrawal symptoms -initial plan was for suboxone, however patient still withdrawing and in pain so switched to methadone -started at methadone 10mg daily, however pain remained so increased to 15mg daily, and may need further increase -on 03/12 patient's pain and withdrawal symptoms much improved -will need outpatient setup for detox, possibly on methadone vs suboxone 3. Tobacco abuse, acute on chronic, present on admission -offer patient nicotine patch -education provided on smoking cessation 4. Under weight/malnourished as evidence by a BMI of 22.6, likely secondary to substance abuse, acute on chronic, present on admission -nutritional consult ordered 5. Adrenal nodule, left -incidentally noted, 2cm, recommend outpatient MRI for further eval Code status:Full Surrogate decision maker: Mother Parul TREJOID PCR: Negative DVT/VTE prophylaxis: Lovenox 40U sc after surgery
--- NOTE | 2021-03-12 11:23 | CM.DPC ---
Addendum entered by Aliyah Granger R.N. 03/12/21 14:13: Went ahead and faxed [facility] and [facility] the dietary note from inoculator. No P.T. notes available as of yet. Addendum entered by Aliyah Granger R.N. 03/12/21 12:45: Called [facility], and spoke to May in admissions. Their phone number is: [phone]. Asked her if they have any availabilities for patients. Gave her a history of patient, for she wanted to know about her social history, and where she was staying. Let her know that she does have a drug history, but has been staying in an RV at [employer] here in [place] with her significant other, as well as spending time on her mother's property in her car in [place]. Let her know that she also has friends out in the community that can assist her. May indicated they can't accept patient at this time, due to where she lives, and her social situation, as well as drug history. Original Note: DCP Cont: Discussed patient during team rounds. Confirmed that she will need approximately 2 weeks of IV antibiotics. Patient does not yet have a PICC or midline, but may possibly be placed today. Hospital voiced, concerns of placing PICC if patient decides she wants to go home. The medication that patient may be placed on at discharge is Pennicillin. Called [facility] and left a message. According to recent notes, they may have openings later this week. Went ahead and faxed over face sheet, H&P, and yesterday's progress note, along with ER report, over to [facility]. P.T. is pending. Called [facility], Celine was not in, but spoke with associate. Confirmed that they do have referral, but still need to review. It is noted that today's progress note is in, and let her know that this case manger will fax over today's note. PASSR is also needed as well, and med sheets. If PICC line is placed, they will also need information on this as well. They did not confirm that they will accept as of yet, they still need to review. Completed PASSR, and faxed that along with med sheets, and today's progress note to [facility]. When P.T. notes are completed, will fax over as well. P: DCP to continue to work on placement for patient. Will follow up later today with [facility] as well. So far, [facility] is reviewing, and [facility] has been sent referral. Aliyah Granger RN/Digital Sales Director
--- NOTE | 2021-03-12 12:47 | DIET.PN ---
Dietary Progress Note Assessment: 60y Hepatitis C positive F admitted for unstagable pressure wound to R hip requiring I&D referred to nutrition for malnutrition consultation and wound care support. Pt reports homelessness prior to 1y ago. Pt now lives in RV c SO and two dogs cycling between campgrounds q21d, currently at [employer]. Pts RV has electric and water and she is able to do food prep there. Pt active heroin, meth, and cigarette user (1/2ppd) currently in withdrawal. Pt presents with full thickness skin and tissue loss on unstagable pressure sore on R hip ([id number]) having undergone I&D yesterday. Pt prefers chopped food secondary to trouble chewing but reports loving to eat and prefers 3 meals/d- likes oatmeal, yogurt, fruit, soups. Pt ate her chicken and yogurt at lunch today. Pt substance use likely major contributor to malnourished state with reduced appetite and reduced hunger cues as pt otherwise enjoys a wide variety of foods. Pt states she is anticipating wound care and wants to prioritize attending appointments. HT: 167.6cm WT: 63.4kg BMI: 22.6 Labs: WBC 11.5 H, Cr 0.43 L, CRP 5.5 H MNA: uncalculated Adebayo: 19 Nutrition Diagnosis: Moderate Chronic Malnutrition r/t social and psychologic reasons aeb pt housing insecure c active meth and heroin use in active withdrawal, admitted c full thickness unstagable tunnelled pressure ulcer requiring I&D. Interventions: 1. Assisted pt with ordering dinner and breakfast ensuring nutrient dense choices which are easy for pt to chew. 2. Recc ONS Julius bid, pt tried it yesterday and states she will drink it to support her healing. Diet Order: general EER: ensure PRO, Vits A and C, Zinc for wound healing Monitoring/Evaluations: POs, ONS tolerance
--- NOTE | 2021-03-12 13:25 | PT.IIE ---
Current Diagnoses Gangrene, not elsewhere classified (03/09/21) Surgery Performed Operation Date: 03/11/21 15:45 Actual Procedures p I&D leg(Right) - Vel Nicole MD Surgical History (Last Reviewed 03/10/21 @ 16:37 by Vel Nicole MD) History of appendectomy Medical History (Last Reviewed 03/10/21 @ 16:37 by Vel Nicole MD) Heroin use Methamphetamine use Tobacco abuse Physical Therapy Inpatient Evaluation/Re-Eval M1 PT/OT-IP Prior Functional Status Start: 03/12/21 16:32 Freq: NEEDED Status: Active Protocol: Document 03/12/21 13:25 AB (Rec: 03/12/21 16:44 AB [email or web address]) Medical Review Prior Functional Status Medical History Reviewed Yes Communication able to make needs known Mobility and Gait pt stated that she is independent with all mobilities and ambulation without AD Social History Household Members significant other Living Arrangements RV Number of Floors (Floors) One Floor Number of Stairs To Enter/Railing? 1 step L side bar to enter; Home Environment Standard Height Toilet,Walk in Shower,Built-In Shower Seat Home Equipment Grab Bars Near Toilet,Grab Bars In Shower Additional Social History Comment pt stated that she lives in a motor home at [facility] with her partner; uses the park's facilities (toilet and showers) and info is regarding [place] toilet/ shower M2 PT-IP Current Condition Start: 03/12/21 16:32 Freq: NEEDED Status: Active Protocol: Document 03/12/21 13:25 AB (Rec: 03/12/21 16:44 AB [email or web address]) Physical Therapy Current Condition Current Condition Evaluation Date 03/12/21 Treatment Diagnosis RLE cellulitis s/p sharp excisional debridement; difficulty in walking Onset Date 03/09/21 M3 PT-IP Subjective Start: 03/12/21 16:32 Freq: NEEDED Status: Active Protocol: Document 03/12/21 13:25 AB (Rec: 03/12/21 16:44 AB [email or web address]) Subjective Physical Therapy Visit Type Type Initial Evaluation Visit Start Time 13:25 Visit Stop Time 13:45 Total Visit Minutes 20 Number of FABRICATION LEAD Visits 0 Physical Therapy Visit Comments Patient Comments able to make needs known Therapy Pain Assessment Pain Present Pain Present Denied Pain M4 PT-IP Mobility and Gait Start: 03/12/21 16:32 Freq: NEEDED Status: Active Protocol: Document 03/12/21 13:25 AB (Rec: 03/12/21 16:44 AB [email or web address]) PT-Bed Mobility Assessment Supine to Sit Supine to Sit Independent Sit to Supine Sit to Supine Independent PT-Transfer Assessment Sit to and From Stand Sit to and from Stand Independent Equipment Transfer Assistive Device None,Gait Belt Orthotic/Prosthetic Devices or Brace: No Comments Mobility Comments pt completed bed mobility mod I. completed sit to stand mod I and ambulated in room without AD mod I. pt without LOB and is steady with ambulation. pt agreed to do steps and completed up/down step stool using edge of door for support SBA for safety. pt ambulated back to the bed mod I. pt does not want to sit on the chair. positioned in bed. call light and table placed within reach. informed pt regarding mobility and no further PT intervention needed at this time. pt agreed. pt educated on safety an still ask for assistance if needed and pt understood. informed nurse regarding pt's mobility and is aware that pt does not need further PT at this time. Gait Assessment Gait Gait Assistance Required: Independent Distance (Feet) 50 Able to Maintain Weight Bearing Status Yes During Gait Assistive Devices Assistive Device None,Gait Belt Orthotic/Prosthetic Devices or Brace: No Gait Deviations General Gait Pattern Decreased Stride Length, Decreased Feet Clearance Stair Climbing Assessment Evaluation Level of Assist On Stairs Standby Assistance Devices Stair Climbing Assistive Devices Left Railing Technique/Endurance Stair Climbing Direction Ascend and Descend Stair Climbing Technique Step to Step Number of Steps Climbed 1 Query Text: Stair Climbing Set # Repetitions (reps) 5 PT-Balance Assessment Sitting Balance and Reactions Static Sitting Balance Ability Normal Dynamic Sitting Balance Ability Normal Standing Balance and Reactions Static Standing Balance Ability Good Dynamic Standing Balance Ability Good Device Used without AD M5 PT-IP Objective Assessments Start: 03/12/21 16:32 Freq: NEEDED Status: Active Protocol: Document 03/12/21 13:25 AB (Rec: 03/12/21 16:44 AB [email or web address]) Orientation Orientation/Cognition Level of Alertness Alert Orientation Name,Place,Situation Language Function Ability No Deficits Noted Safety Awareness Understands Safety Issues Memory Description No Deficits Noted Gross Range of Motion Lower Extremity ROM Assessment Within Functional Limits Strength Lower Extremity Strength Assessment Within Functional Limits Coordination Assessment Gross Coordination Gross Coordination WNL Muscle Tone Muscle Tone WNL Yes M6 PT-IP Treatment Start: 03/12/21 16:32 Freq: NEEDED Status: Active Protocol: Document 03/12/21 13:25 AB (Rec: 03/12/21 16:44 AB [email or web address]) Physical Therapy Treatment Education Education Provided Safety M7 PT-IP Assessment and Plan Start: 03/12/21 16:32 Freq: NEEDED Status: Active Protocol: Document 03/12/21 13:25 AB (Rec: 03/12/21 16:44 AB [email or web address]) PT Summary Assessment and Plan Potential Rehabilitation Potential Good Status of Condition at Evaluation Stable Summary Progress Towards Goals Safe For Discharge Assessment Summary PT eval completed and pt is modified independent with mobility. pt is able to ambulate without AD and has no LOB. No further PT intervention indicated at this time. pt plans to go home and has her significant other to assist her if needed. Frequency of Treatment Frequency Of Treatment Discharge Recommendations To Nursing Amount of Assist Needed Standby Assistance Discharge Recommendations PT Discharge Recommendations Home Transportation Needs at Discharge Private Vehicle
[2021-03-12] MEDS: KETOROLAC 30 MG/ML VIAL IV (16:16)
[2021-03-12] MEDS: NICOTINE 14 PATCH 14 MG TOP (16:32)
--- NOTE | 2021-03-12 17:10 | PC.NURSE ---
Addendum entered by Delmi Prieto R.N. 03/12/21 20:31: Pt mostly sleeping in bed on left side, but wakens easily to name. Confirmed with pt surgeon nor nursing have not changed pt's dressing to right buttock today and pt reports this has not been done. Noted serosang. drainage on fitted sheet and bath blanket. Pt independent up to commode for void and returns to bed and positions self on left side. Removed tape and bulky dressing to right buttock. Kerlix placed against open incisional wound is saturated with bloody fluid. This was removed. Pooling of serosang. fluid at lateral dependent aspect of wound absorbed with bulky 4 x 4's. Wet kerlix roll with normal saline and opened this up and with a fan pattern, gently placed kerlix single layer at a time against wound bed using approximately half of the roll. This was then cut and making sure all wet kerlix was against wound bed and not on healthy surrounding skin, placed bulky 4 x 4's against lateral dependent aspect of incisional wound and covered remaining kerlix/wound with open abd pads x 2. Secured with silk tape. Pt tolerated this well. Taking small amounts of foods/fluids at bedside. Original Note: Pt rouses easily to voice when Dr. Gonzales in to speak with pt re plan moving forward for pt's care. This service writer enters room following MD's exit and pt is on telephone and is tearful. Pt requests to be allowed to go to parking lot to car and this service writer informs pt this is not allowed unless pt is attended by staff/security and even then this is discouraged. Inquired of pt if friend could bring items from pt's car that pt is in need of (cell phone and dentures). Pt accepts this explanation. Pt requests nicotine patch and this was discussed with hospitalist. Nicotine patch placed on pt's right upper arm. Toradol administered as per emar for right buttock pain 03/13. Pt prefers left side lying position in bed. Refuses scd's.
[2021-03-12 18:13] LABS: Vancomycin Trough 13.8 ug/mL (10-20)
[2021-03-12] MEDS: ACETAMINOPHEN 325 MG TABLET 650 MG PO (20:11)
[2021-03-13] MEDS: CLINDAMYCIN 900 MG/50 ML PIGGYBACK 50 MG IV ×2 (00:24→08:07)
[2021-03-13 00:30] VITALS: BP 109/58; PULSE 64; RESP 16; TEMP 36.8; O2SAT 98
[2021-03-13] MEDS: VANCOMYCIN 750 MG/150 ML PIGGYBACK 150 MG IV ×2 (01:45→09:27)
[2021-03-13] MEDS: PIPERACILLIN/TAZO 3.375 GM in SODIUM CHLORIDE 0.9% 100 ML 25 ML IV ×2 (03:01→11:01)
[2021-03-13 04:50] VITALS: BP 107/63; PULSE 62; RESP 18; TEMP 36.3; O2SAT 97
[2021-03-13 04:52] VITALS: O2SAT 97
[2021-03-13] MEDS: PANTOPRAZOLE DR 20 MG TABLET PO (05:08)
[2021-03-13 05:54] LABS: Hematocrit 27.9 % (36-46); Hemoglobin 9.4 g/dL (12.0-16.0); Mean Corpuscular HGB Conc 33.5 % (30-36); Mean Corpuscular Volume 86.6 fL (80-100); Platelet Count 560 X10^3/uL (150-400); Red Blood Cell Count 3.22 X10^6/uL (4.0-5.2); Red Cell Distribution Width 14.5 % (11.6-14.8); White Blood Cell Count 12.3 X10^3/uL (4.5-11.0)
[2021-03-13 05:58] LABS: BUN Creatinine Ratio 33.9 (6-22); Blood Urea Nitrogen 19 mg/dL (7-17); Calcium 7.8 mg/dL (8.4-10.2); Carbon Dioxide 22 mmol/L (22-32); Chloride 113 mmol/L (98-107); Estimated Glomerular Filt Rate > 60.0 mL/min (>60); Glucose 93 mg/dL (70-100); HEMOLYSIS < 15 (0-50); Potassium 3.7 mmol/L (3.4-5.1); Sodium 137 mmol/L (137-145)
--- NOTE | 2021-03-13 07:37 | CM.DPC ---
Addendum entered by Aliyah Granger R.N. 03/13/21 08:10: Went ahead and left messages with Ingris at [facility], and Lexie, at [facility] regarding possibly accepting patient, but did not yet fax referral. Original Note: DCP Cont: Jamia at [facility] left a message and stated that she has no beds for this week, but can attempt to continue to check in. May explore skilled facilities. Aliyah Granger RN/Electrocardiogram Technician
[2021-03-13] MEDS: ENOXAPARIN 40 MG/0.4 ML SYRINGE SUBCUT (08:07)
[2021-03-13] MEDS: METHADONE 10 MG TABLET 15 MG PO (08:07)
[2021-03-13] MEDS: SODIUM CHLORIDE 0.9% FLUSH 10 ML IV (08:08)
[2021-03-13 08:15] VITALS: BP 100/56; PULSE 64; RESP 16; TEMP 37.1; O2SAT 96
--- NOTE | 2021-03-13 08:56 | CM.DPC ---
Addendum entered by Aliyah Granger R.N. 03/13/21 10:14: Erwin at [facility] just called back and left a message after reviewing case with their provider, that they can't accept patient. So far, both [facility]'s are reviewing. Original Note: DCP Cont: Lexie from [facility] called back and left a message asking for more information on patient. She was wanting to know when patient had used drugs last, as well as what antibiotic that patient would be discharged with. Went ahead and faxed her over referral, including face sheet, ER report, H&P, operative report, and yesterday's progress note. Went ahead and sent the same information over to [facility] as well. Erwin from [facility] called back and is asking for additional information, for patient is still being reviewed. She is requesting nursing notes, what wound care needs to be done, and P.T. notes. Let her know that this hospice case manager will fax over information. Their fax number is: [phone]. Their direct phone number at [facility] is: [phone] [email or web address] P: DCP to continue to work on placement for IV antibiotics. Aliyah Granger RN/Stacker Tender
[2021-03-13 09:16] VITALS: O2SAT 96
--- NOTE | 2021-03-13 10:41 | CM.DPNOTE ---
Ingris from [facility] called and said they cannot take patient due to drug use. Iris Chun CM Asst.
--- NOTE | 2021-03-13 10:53 | CM.DPC ---
DCP Cont: Patient is wanting to go home today. [facility] could not accept patient, did not yet hear back from [facility], [facility], and [place] [facility] full. Met with patient in her room with hospitalist. Introduced self and role. Patient confirmed that she [facility], does not have a current provider. Let her know that this case manage can print out some resources for her, since [facility] is accepting new patients. Asked her if she wants the munitions handler to make her an appointment with one of the providers at [facility]. Patient indicated, she wanted to do it herself, she will look over the information. Patient is leaving against medical advise, stated that she needs to get home to her motor home and take care of the dogs. Patient will be discharged on oral antibiotics, she stated that she uses [facility] here in [place]. Patient is wanting to follow up with wound clinic. Hospitalist will put in order, but it is unknown when they will be able to see her. Lexie at [facility] also left a message and declined patient. P: Patient is leaving hospital AMA but will be on oral antibiotics. She stated that she has a friend that will pick her up. Gave her resources for primary care providers, and wound clinic referral will be placed. Patient stated I heal fast, I should be able to take care of my wound. Aliyah Granger, RN/Land Inspector
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
--- NOTE | 2021-03-13 12:20 | PC.NURSE ---
[id number] Patient informed this RN that her ride would be here at 1200. Asked if patient would stay for abx infusion to finish infusing, patient refused. Abx stopped and both PIV removed. Old dressing to right hip removed and replaced. Wound bed pink, scant sero sanguineous drainage noted on old dressing. No odor or discharge noted from wound. No redness to outlying tissue. Placed one roll of saline soaked kerlex to wound and covered with three abd pads and secured with silk tape. Encouraged patient to stay in hospital and continue treatment, patient refuses. Patient taken via wc to vehicle driven by friend. Patient signed AMA paperwork. Patient had all belongings including, ring, bracelet and earrings.
--- NOTE | 2021-03-13 13:06 | CM.DPC ---
DCP Cont: Patient left AMA, and will proceed with oral antibiotics, which were ordered at [facility] here in [place]. Patient was able to get in touch with her friend to pick her up. She has resources with her with information for primary care providers. Aliyah Granger RN/Motor Polarizer
== END 2021-03-13 12:26 | disposition left against medical advice (07) | DRG 264 ==
LOC: ED 23:50 → AC 23:50
PROVIDERS: Internal Medicine; Surgery; Admitting Provider Nurse Practitioner Family; Emergency Provider Emergency Medicine; Referring Provider Emergency Medicine; Visit Provider Nurse Practitioner Family
PROC: 0JBL0ZZ Excision of Right Upper Leg Subcutaneous Tissue and Fascia, Open Approach (ICD-10-PCS; principal; 2021-03-11 15:45)
DX: I96 Gangrene, not elsewhere classified (principal); L89.213 Pressure ulcer of right hip, stage 3; F11.13 Opioid abuse with withdrawal; L03.115 Cellulitis of right lower limb; E46 Unspecified protein-calorie malnutrition; E27.8 Other specified disorders of adrenal gland; F15.10 Other stimulant abuse, uncomplicated; F17.200 Nicotine dependence, unspecified, uncomplicated; Z68.23 Body mass index [BMI] 23.0-23.9, adult; Z20.822 Contact with and (suspected) exposure to COVID-19; Z59.0 Homelessness
CPT/HCPCS: 11043; 36415; 73701; 74177; 80048; 80053; 80202; 81001; 82550; 82977; 83605; 83735; 84145; 84484; 85025; 85027; 85379; 85610; 85651; 86140; 87040; 87070; 87075; 87077; 87176; 87186; 87205; 87635; 93005; 94760; 94762; 96361; 96365; 96366; 96367; 96375; 97161; 99232; 99284; 99406; C9803; J0696; J1100; J1170; J1650; J1885; J2405; J2543; J2704; J3010; Q9967

== ENCOUNTER → 2021-03-17 13:33 | Outpatient (CLI) | payer MEDICARE, SELFPAY ==
[2021-03-10 00:45] VITALS: BMI 23.1
== END ==
LOC: WC 13:39
PROVIDERS: Referring Provider Internal Medicine; Visit Provider Family Medicine
DX: S71.001A Unspecified open wound, right hip, initial encounter (principal); F11.10 Opioid abuse, uncomplicated; F15.10 Other stimulant abuse, uncomplicated; E44.0 Moderate protein-calorie malnutrition; L08.9 Local infection of the skin and subcutaneous tissue, unspecified; F17.200 Nicotine dependence, unspecified, uncomplicated; B18.2 Chronic viral hepatitis C; Z59.1 Inadequate housing
CPT/HCPCS: 11043; 11046; 97606; 99204; 99213

== ENCOUNTER → 2021-03-19 13:25 | Outpatient (CLI) | payer MEDICARE, SELFPAY ==
[2021-03-10 00:45] VITALS: BMI 23.1
== END ==
LOC: WC 13:27
PROVIDERS: Referring Provider Surgery; Visit Provider Family Medicine
DX: S71.001A Unspecified open wound, right hip, initial encounter (principal)
CPT/HCPCS: 97606

== ENCOUNTER → 2021-03-21 11:34 | Outpatient (CLI) | payer MEDICARE, SELFPAY ==
[2021-03-10 00:45] VITALS: BMI 23.1
== END ==
PROVIDERS: Referring Provider Surgery; Visit Provider Family Medicine
DX: S71.001A Unspecified open wound, right hip, initial encounter (principal)
CPT/HCPCS: 97606

== ENCOUNTER → 2021-03-24 12:11 | Outpatient (CLI) | payer MEDICARE, SELFPAY ==
[2021-03-10 00:45] VITALS: BMI 23.1
== END ==
LOC: WC 12:12
PROVIDERS: Referring Provider Surgery; Visit Provider Family Medicine
DX: S71.001A Unspecified open wound, right hip, initial encounter (principal)
CPT/HCPCS: 97606

== ENCOUNTER → 2021-03-26 08:41 | Outpatient (CLI) | payer MEDICARE, SELFPAY ==
[2021-03-10 00:45] VITALS: BMI 23.1
== END ==
PROVIDERS: Referring Provider Surgery; Visit Provider Nurse Practitioner Family
DX: S71.001A Unspecified open wound, right hip, initial encounter (principal); L08.9 Local infection of the skin and subcutaneous tissue, unspecified; F11.10 Opioid abuse, uncomplicated; F15.10 Other stimulant abuse, uncomplicated; E44.0 Moderate protein-calorie malnutrition; Z72.0 Tobacco use; B18.2 Chronic viral hepatitis C; Z59.1 Inadequate housing
CPT/HCPCS: 11042; 11045; 97606; 99213

== ENCOUNTER → 2021-03-31 12:12 | Outpatient (CLI) | payer MEDICARE, SELFPAY ==
[2021-03-10 00:45] VITALS: BMI 23.1
== END ==
LOC: WC 12:18
PROVIDERS: Referring Provider Surgery; Visit Provider Family Medicine
DX: S71.001A Unspecified open wound, right hip, initial encounter (principal); F11.10 Opioid abuse, uncomplicated; F15.10 Other stimulant abuse, uncomplicated; E44.0 Moderate protein-calorie malnutrition; Z72.0 Tobacco use; B18.2 Chronic viral hepatitis C; Z59.1 Inadequate housing
CPT/HCPCS: 11042; 11045; 97606

== ENCOUNTER → 2021-04-02 10:05 | Outpatient (CLI) | payer MEDICARE, SELFPAY ==
[2021-03-10 00:45] VITALS: BMI 23.1
== END ==
LOC: WC 10:07
PROVIDERS: Referring Provider Emergency Medicine; Visit Provider Family Medicine
DX: S71.002A Unspecified open wound, left hip, initial encounter (principal)
CPT/HCPCS: 97606

== ENCOUNTER → 2021-04-04 10:14 | Outpatient (CLI) | payer MEDICARE, SELFPAY ==
[2021-03-10 00:45] VITALS: BMI 23.1
== END ==
LOC: WC 10:15
PROVIDERS: Referring Provider Emergency Medicine; Visit Provider Nurse Practitioner Family
DX: S71.002A Unspecified open wound, left hip, initial encounter (principal)
CPT/HCPCS: 97606

== ENCOUNTER → 2021-04-08 10:00 | Outpatient (CLI) | payer MEDICARE, SELFPAY ==
[2021-03-10 00:45] VITALS: BMI 23.1
== END ==
PROVIDERS: Referring Provider Emergency Medicine; Visit Provider Family Medicine
DX: S71.001A Unspecified open wound, right hip, initial encounter (principal); F11.10 Opioid abuse, uncomplicated; F15.10 Other stimulant abuse, uncomplicated; E44.0 Moderate protein-calorie malnutrition; F17.200 Nicotine dependence, unspecified, uncomplicated; B18.2 Chronic viral hepatitis C; Z59.1 Inadequate housing
CPT/HCPCS: 11042; 11045; 97606

== ENCOUNTER → 2021-04-11 09:55 | Outpatient (CLI) | payer MEDICARE, SELFPAY ==
[2021-03-10 00:45] VITALS: BMI 23.1
== END ==
LOC: WC 09:57
PROVIDERS: Visit Provider Family Medicine
DX: S71.001A Unspecified open wound, right hip, initial encounter (principal)
CPT/HCPCS: 97608

== ENCOUNTER → 2021-04-15 11:02 | Outpatient (CLI) | payer MEDICARE, SELFPAY ==
[2021-03-10 00:45] VITALS: BMI 23.1
== END ==
LOC: WC 11:03
PROVIDERS: Referring Provider Emergency Medicine; Visit Provider Family Medicine
DX: S71.001A Unspecified open wound, right hip, initial encounter (principal); F11.10 Opioid abuse, uncomplicated; F15.10 Other stimulant abuse, uncomplicated; E44.0 Moderate protein-calorie malnutrition; Z72.0 Tobacco use; B18.2 Chronic viral hepatitis C; Z59.1 Inadequate housing; L08.9 Local infection of the skin and subcutaneous tissue, unspecified
CPT/HCPCS: 11042; 11045; 87070; 87075; 87077; 87147; 87186; 87205; 99213

== ENCOUNTER → 2021-04-25 09:04 | Outpatient (CLI) | payer MEDICARE, SELFPAY ==
[2021-03-10 00:45] VITALS: BMI 23.1
== END ==
PROVIDERS: Visit Provider Nurse Practitioner Family
DX: S71.001A Unspecified open wound, right hip, initial encounter (principal); L08.9 Local infection of the skin and subcutaneous tissue, unspecified; F11.10 Opioid abuse, uncomplicated; F15.10 Other stimulant abuse, uncomplicated; E44.0 Moderate protein-calorie malnutrition; Z72.0 Tobacco use; B18.2 Chronic viral hepatitis C; Z59.1 Inadequate housing
CPT/HCPCS: 11042; 11045; 99213

== ENCOUNTER → 2021-05-02 10:33 | Outpatient (CLI) | payer MEDICARE, SELFPAY ==
[2021-03-10 00:45] VITALS: BMI 23.1
== END ==
PROVIDERS: Referring Provider Emergency Medicine; Visit Provider Nurse Practitioner Family
DX: S71.001A Unspecified open wound, right hip, initial encounter (principal); B95.62 Methicillin resistant Staphylococcus aureus infection as the cause of diseases classified elsewhere; F17.210 Nicotine dependence, cigarettes, uncomplicated; E46 Unspecified protein-calorie malnutrition
CPT/HCPCS: 97597; 97598; 99213

== ENCOUNTER → 2021-05-09 11:03 | Outpatient (CLI) | payer MEDICARE, SELFPAY ==
[2021-03-10 00:45] VITALS: BMI 23.1
== END ==
LOC: WC 11:05
PROVIDERS: Visit Provider Nurse Practitioner Family
DX: S71.001A Unspecified open wound, right hip, initial encounter (principal); L08.9 Local infection of the skin and subcutaneous tissue, unspecified; E44.0 Moderate protein-calorie malnutrition; F17.200 Nicotine dependence, unspecified, uncomplicated
CPT/HCPCS: 11042; 11045; 99213

== ENCOUNTER → 2021-05-16 09:12 | Outpatient (CLI) | payer MEDICARE, SELFPAY ==
[2021-03-10 00:45] VITALS: BMI 23.1
== END ==
PROVIDERS: Visit Provider Nurse Practitioner Family
DX: S71.001A Unspecified open wound, right hip, initial encounter (principal); L08.9 Local infection of the skin and subcutaneous tissue, unspecified; F17.200 Nicotine dependence, unspecified, uncomplicated; Z59.1 Inadequate housing
CPT/HCPCS: 11042; 11045; 99212; 99213

== ENCOUNTER → 2021-05-23 10:18 | Outpatient (CLI) | payer MEDICARE, SELFPAY ==
[2021-03-10 00:45] VITALS: BMI 23.1
== END ==
PROVIDERS: Referring Provider Emergency Medicine; Visit Provider Nurse Practitioner Family
DX: S71.001A Unspecified open wound, right hip, initial encounter (principal); B95.62 Methicillin resistant Staphylococcus aureus infection as the cause of diseases classified elsewhere; F17.210 Nicotine dependence, cigarettes, uncomplicated; S70.01XS Contusion of right hip, sequela
CPT/HCPCS: 97597; 97598

== ENCOUNTER → 2021-05-30 09:06 | Outpatient (CLI) | payer MEDICARE, SELFPAY ==
[2021-03-10 00:45] VITALS: BMI 23.1
== END ==
PROVIDERS: Referring Provider Internal Medicine; Visit Provider Nurse Practitioner Family
DX: S71.001A Unspecified open wound, right hip, initial encounter (principal); B95.62 Methicillin resistant Staphylococcus aureus infection as the cause of diseases classified elsewhere
CPT/HCPCS: 97597; 97598; 99213

== ENCOUNTER → 2021-06-13 08:41 | Outpatient (CLI) | payer MEDICARE, SELFPAY ==
[2021-03-10 00:45] VITALS: BMI 23.1
== END ==
PROVIDERS: Visit Provider Family Medicine
DX: T81.89XA Other complications of procedures, not elsewhere classified, initial encounter (principal); S71.001A Unspecified open wound, right hip, initial encounter; B95.62 Methicillin resistant Staphylococcus aureus infection as the cause of diseases classified elsewhere
CPT/HCPCS: 97597; 97598

== ENCOUNTER → 2021-08-31 11:46 | Outpatient (CLI) | payer MEDICARE, SELFPAY ==
[2021-03-10 00:45] VITALS: BMI 23.1
[2021-08-31 12:35] LABS: COVID19 -Nasal RAPID POSITIVE (Negative)
== END ==
PROVIDERS: Referring Provider Physician Assistant; Visit Provider Physician Assistant
DX: R51.9 Headache, unspecified (principal); R09.89 Other specified symptoms and signs involving the circulatory and respiratory systems; R09.81 Nasal congestion
CPT/HCPCS: 87635

== ENCOUNTER 2022-02-07 02:10 | Emergency (ER) | payer MEDICARE, SELFPAY ==
[2021-03-10 00:45] VITALS: BMI 23.1
[2022-02-07 02:17] VITALS: BP 139/83; PULSE 73; RESP 22; TEMP 36.6; O2SAT 94
--- NOTE | 2022-02-07 02:32 | ED_ITS ---
HPI - Nausea/Vomiting/Diarrhea General Chief complaint: Nausea/Vomiting/Diarrhea Stated complaint: over medicated w/suboxin.. Time Seen by Provider: 02/07/22 02:12 Source: patient Mode of arrival: Ambulatory History of Present Illness HPI Narrative: Patient is a 61-year-old female. His on Suboxone given a prior history of opioid abuse who states that last evening she was having some problems sleeping. She states that Suboxone normally helps her sleep. She normally takes 2 Suboxone however this evening she took 3. She states that she did not do it on purpose. She thought it was 1 of her hydroxyzine and. Afterwards she started t o have some abdominal discomfort and nausea. She did vomit 1 time. She got scared and decided to come in for evaluation. Related Data Home Medications Medication Instructions Recorded Confirmed Suboxone BUCCAL 03/14/21 08/31/21 Previous Rx's Medication Instructions Recorded adhesive tape #12 ea 03/13/21 gauze bandage #1 ea 03/13/21 non-adherent bandage 6 X 9 #48 ea 03/13/21 Allergies Allergy/AdvReac Type Severity Reaction Status Date / Time codeine Allergy Mild ITCHING Verified 08/31/21 11:42 Review of Systems Cardiovascular Cardiovascular: Reports system reviewed and no additional complaints, except as documented Respiratory Respiratory: Reports system reviewed and no additional complaints, except as documented Gastrointestinal Gastrointestinal: Reports as per HPI and Reports system reviewed and no additional complaints, except as documented Psychiatric Psychiatric: Reports system reviewed and no additional complaints, except as documented Hematologic/Lymphatic Hematologic/Lymphatic: Reports system reviewed and no additional complaints, except as documented Patient History Medical History Heroin use Methamphetamine use Tobacco abuse Surgical History History of appendectomy Family History Father Heart attack Cancer Mother No known health problems Social History household members: significant other Smoking Status: Current every day smoker alcohol intake: former Smoking Status: Current every day smoker alcohol intake frequency: 0-2 drinks per day Substance Use Type: heroin and methamphetamine Exam Initial Vital Signs Initial Vital Signs: Vital Signs Temperature 97.9 F 02/07/22 02:17 Pulse Rate 73 02/07/22 02:17 Respiratory Rate 22 02/07/22 02:17 Blood Pressure 139/83 02/07/22 02:17 Pulse Oximetry 94 02/07/22 02:17 Resp Effort & Inspection: normal respiratory effort Cardio Rate: regular rate GI Inspection: normal to inspection Palpation: soft, No firm and No tender Skin General: no rashes or lesions noted Neuro General: patient alert, patient awake and moves all extremities Extrem General: capillary refill normal Course Orders Ordered: Discontinued Medications Ondansetron HCl (Ondansetron 4 Mg Odt) 4 mg SL NOW ONE Stop: 02/07/22 02:33 Last Admin: 02/07/22 02:36 Dose: 4 mg Documented by: MADISON Vital Signs Vital signs: Vital Signs - 8 hr 02/07/22 02:17 Temperature 97.9 F Pulse Rate 73 Respiratory Rate 22 Blood Pressure 139/83 Pulse Oximetry 94 MDM - Nausea/Vomiting/Diarrhea MDM Narrative Medical decision making narrative: Patient did feel better after the oral Zofran here in the ER. She has a benign exam. Her right reassurance to the patient. Will send home with Zofran. She was given return precautions. She expressed understanding and agreement. Discharge Plan Departure Patient Disposition: Home Clinical Impression: Accidental medication overdose Instructions: DI for Safely Taking and Storing Medications -- Adults Activity Restrictions/Additional Instructions: Continue to take all of your medications as directed. Contact your primary doctor for a follow-up. Return to the emergency department for any new or worsening symptoms. Prescriptions: No Action Suboxone buccal 0RF (DME) gauze bandage 4 X 2.5 -yard bandage See Rx Instructions .ROUTE .MEDSUPPLY Qty: 1 0RF Rx Instructions: For use with daily dressing changes (DME) non-adherent bandage 6 X 9 bandage See Rx Instructions .ROUTE .MEDSUPPLY Qty: 48 0RF Rx Instructions: Change daily or as needed (DME) adhesive tape 3 X 10 -yard tape See Rx Instructions .ROUTE .MEDSUPPLY Qty: 12 0RF Rx Instructions: for use with dressing changes Referrals: Miscellaneous,Doctor, MD [Primary Care Provider] -
[2022-02-07] MEDS: ONDANSETRON 4 MG ODT SL (02:36)
[2022-02-07] MEDS: ONDANSETRON 4 MG ODT PREPACK 1 BOTTLE MISC (03:09)
== END 2022-02-07 03:13 | disposition home or self-care (01) ==
PROVIDERS: Emergency Provider Emergency Medicine
DX: T40.491A Poisoning by other synthetic narcotics, accidental (unintentional), initial encounter (principal); R11.2 Nausea with vomiting, unspecified
CPT/HCPCS: 99283

== ENCOUNTER → 2023-01-27 12:17 | Outpatient (CLI) | payer MEDICARE, SELFPAY ==
[2021-03-10 00:45] VITALS: BMI 23.1
--- NOTE | 2023-01-27 12:22 | DI.RAD.S_ITS ---
PROCEDURE: XR FOOT LT MIN 3V INDICATIONS: left foot crush injury 2 wk ago TECHNIQUE: 3 views of the foot were acquired. COMPARISON: None. FINDINGS: Bones: No fractures or dislocations. No suspicious bony lesions. Metatarsus adductus and hallux valgus. Moderate degenerative joint disease, most pronounced at the 1st metatarsophalangeal joint. Calcaneal spurring. Soft tissues: No tibiotalar joint effusion. Achilles tendon appears normal. Dorsal soft tissue swelling. IMPRESSION: 1. No acute osseous abnormality. 2. Metatarsus adductus and hallux valgus. 3. Moderate degenerative joint disease. 4. Calcaneal spurring. 5. Dorsal soft tissue swelling. Dictated by: Emani Whyte M.D. on 01/27/2023 at 13:12 Approved by: Emani Whyte M.D. on 01/27/2023 at 13:15
== END ==
PROVIDERS: Referring Provider Student in an Organized Health Care Education/Training Program; Visit Provider Student in an Organized Health Care Education/Training Program
DX: S97.82XA Crushing injury of left foot, initial encounter (principal); M79.672 Pain in left foot; M20.12 Hallux valgus (acquired), left foot; M19.072 Primary osteoarthritis, left ankle and foot; M79.89 Other specified soft tissue disorders; M77.32 Calcaneal spur, left foot; M21.6X2 Other acquired deformities of left foot; X58.XXXA Exposure to other specified factors, initial encounter
CPT/HCPCS: 73630